=== PATIENT | female | born 1975 | race Caucasian/White ===

== ENCOUNTER 2016-07-28 14:37 | Emergency (ER) | payer OTHER | END 2016-07-28 16:54 | disposition home or self-care (01) | DX: F32.9 Major depressive disorder, single episode, unspecified (principal); R45.851 Suicidal ideations; R51 Headache; S41.112A Laceration without foreign body of left upper arm, initial encounter; X78.8XXA Intentional self-harm by other sharp object, initial encounter; F31.9 Bipolar disorder, unspecified; F43.10 Post-traumatic stress disorder, unspecified; M79.7 Fibromyalgia; M54.9 Dorsalgia, unspecified; G89.29 Other chronic pain; F17.200 Nicotine dependence, unspecified, uncomplicated ==

== ENCOUNTER 2016-08-07 | Outpatient (CLI) | payer OTHER | END 2016-08-07 11:42 | disposition critical access hospital (66) | CPT/HCPCS: A0425; A0429 ==

== ENCOUNTER 2016-08-07 11:59 | Emergency (ER) | payer OTHER ==
[2016-08-07] MEDS ORDERED: oxyCOD/ACETAMIN 5 MG/325 MG TABLET PO STA (18:48)
[2016-08-07] MEDS ORDERED: oxyCOD/ACETAMIN 5 MG/325 MG TABLET PO ONE (18:50)
[2016-08-08] MEDS ORDERED: oxyCOD/ACETAMIN 5 MG/325 MG TABLET PO STA (01:06)
[2016-08-08] MEDS ORDERED: NICOTINE 14 MG PATCH TOP STA (01:07)
[2016-08-08] MEDS ORDERED: oxyCOD/ACETAMIN 5 MG/325 MG TABLET PO ONE (01:08)
[2016-08-08] MEDS ORDERED: NICOTINE 21 MG PATCH TOP ONE (01:08)
[2016-08-08] MEDS ORDERED: NICOTINE 14 MG PATCH TOP ONE (01:09)
[2016-08-08] MEDS ORDERED: HYDROmorphone 1 MG/ML SYRINGE IM STA (01:42)
[2016-08-08] MEDS ORDERED: HYDROmorphone 1 MG/ML SYRINGE ONE (01:42)
== END 2016-08-08 01:55 ==
DX: F32.9 Major depressive disorder, single episode, unspecified (principal); R45.851 Suicidal ideations; F31.9 Bipolar disorder, unspecified; F43.10 Post-traumatic stress disorder, unspecified; S81.811A Laceration without foreign body, right lower leg, initial encounter; X78.9XXA Intentional self-harm by unspecified sharp object, initial encounter
CPT/HCPCS: 36415; 80053; 80306; 80307; 80320; 80329; 81003; 81025; 83690; 84443; 85025; 87070; 87430; 96372; 99284; 99285; A9270; J1170

== ENCOUNTER 2016-08-08 | Outpatient (CLI) | payer OTHER | END 2016-08-08 01:54 | DX: R45.851 Suicidal ideations (principal) | CPT/HCPCS: A0425; A0428 ==

== ENCOUNTER 2016-10-31 13:29 | Outpatient (CLI) | payer OTHER | END 2016-10-31 13:30 | disposition critical access hospital (66) | DX: T43.622A Poisoning by amphetamines, intentional self-harm, initial encounter (principal); T44.992A Poisoning by other drug primarily affecting the autonomic nervous system, intentional self-harm, initial encounter; Y92.013 Bedroom of single-family (private) house as the place of occurrence of the external cause | CPT/HCPCS: A0425; A0427 ==

== ENCOUNTER 2016-10-31 13:48 | Emergency (ER) | payer OTHER ==
[2016-10-31] MEDS ORDERED: MUPIROCIN 2% CREAM 30 GM TUBE TOP STA (17:14)
[2016-10-31] MEDS ORDERED: LORATADINE 10 MG TABLET PO STA (17:14)
[2016-10-31] MEDS ORDERED: LORATADINE 10 MG TABLET ONE (17:33)
[2016-10-31] MEDS ORDERED: FAMOTIDINE 20 MG TABLET PO STA (17:35)
[2016-10-31] MEDS ORDERED: MUPIROCIN 2% OINT 22 GM TUBE TOP ONE (17:35)
[2016-10-31] MEDS ORDERED: FAMOTIDINE 20 MG TABLET ONE (17:38)
[2016-10-31] MEDS ORDERED: LORazepam 0.5 MG TABLET PO STA (21:10)
[2016-10-31] MEDS ORDERED: NICOTINE 21 MG PATCH TOP STA (21:10)
[2016-10-31] MEDS ORDERED: NICOTINE 21 MG PATCH TOP ONE (21:11)
[2016-10-31] MEDS ORDERED: LORazepam 0.5 MG TABLET ONE (21:11)
[2016-10-31] MEDS ORDERED: SIMETHICONE CHEW 80 MG TABLET PO STA (21:35)
[2016-10-31] MEDS ORDERED: KETOROLAC 60 MG/2 ML VIAL IM STA (23:02)
[2016-10-31] MEDS ORDERED: KETOROLAC 60 MG/2 ML VIAL ONE (23:04)
[2016-11-01] MEDS ORDERED: ONDANSETRON 4 MG/2 ML VIAL IVP STA (00:12)
[2016-11-01] MEDS ORDERED: ONDANSETRON 4 MG/2 ML VIAL ONE (00:19)
== END 2016-11-01 01:04 ==
DX: T39.1X2A Poisoning by 4-Aminophenol derivatives, intentional self-harm, initial encounter (principal); T50.5X2A Poisoning by appetite depressants, intentional self-harm, initial encounter; T39.312A Poisoning by propionic acid derivatives, intentional self-harm, initial encounter; T44.992A Poisoning by other drug primarily affecting the autonomic nervous system, intentional self-harm, initial encounter; T43.622A Poisoning by amphetamines, intentional self-harm, initial encounter; Y92.009 Unspecified place in unspecified non-institutional (private) residence as the place of occurrence of the external cause; K21.9 Gastro-esophageal reflux disease without esophagitis; M79.7 Fibromyalgia; F31.9 Bipolar disorder, unspecified; Z79.82 Long term (current) use of aspirin; F17.200 Nicotine dependence, unspecified, uncomplicated
CPT/HCPCS: 36415; 80053; 80306; 80307; 80320; 80329; 81003; 81025; 83690; 84443; 85025; 96372; 96374; 99284; A9270

== ENCOUNTER 2016-11-01 01:08 | Outpatient (CLI) | payer OTHER | END 2016-11-01 01:09 | DX: Z04.9 Encounter for examination and observation for unspecified reason (principal) | CPT/HCPCS: A0425; A0428 ==

== ENCOUNTER 2017-03-23 03:41 | Emergency (ER) | payer OTHER ==
[2017-03-23] MEDS ORDERED: diphenhydrAMINE INJ 50 MG/ML VIAL IVP STA (03:51)
[2017-03-23] MEDS ORDERED: KETOROLAC 60 MG/2 ML VIAL IVP STA (03:51)
[2017-03-23] MEDS ORDERED: SODIUM CHLORIDE 0.9% 1,000 ML IV ONE (03:51)
[2017-03-23] MEDS ORDERED: METOCLOPRAMIDE 10 MG/2 ML VIAL IVP STA (03:51)
[2017-03-23] MEDS ORDERED: KETOROLAC 30 MG/ML VIAL ONE (04:07)
[2017-03-23] MEDS ORDERED: diphenhydrAMINE INJ 50 MG/ML VIAL ONE (04:07)
[2017-03-23] MEDS ORDERED: METOCLOPRAMIDE 10 MG/2 ML VIAL ONE (04:07)
--- NOTE | 2017-03-23 05:08 | ED Physician Documentation ---
PD HPI HEADACHE - Stated complaint Stated Complaint: HEADACHE - Chief complaint Chief Complaint: Neuro - History obtained from History obtained from: Patient, Friend - History of Present Illness Timing - onset: How many days ago (3) Timing - onset during: Rest Timing - duration: Days Timing - details: Gradual onset, Still present Worst headache ever?: Worst headache ever? (no) Location: Front Quality: Aching Associated symptoms: Nausea. No: Fever, Vomiting, Weakness, Numbness, Syncope Improved by: Rest, Dark room Worsened by: Light Contributing factors: No: Anticoagulated Similar symptoms before: Work up / diagnostics, Treatment, Follow up Recently seen: Not recently seen - Additional information Additional information: Patient is a 41 year old female with a history of migraines who is presenting for headache. patient states that it has been going on for the last 4 days. patient has been taking her medications but states that it just wont go away entirely. patient states that it is similar to her previous headaches and denies any focal neurological deficits. Review of Systems Constitutional: denies: Fever, Chills Eyes: reports: Photophobia Ears: denies: Ear pain, Drainage/discharge Nose: reports: Congestion, Sinus pressure / pain Throat: denies: Dental pain / toothache, Sore throat Cardiac: denies: Chest pain / pressure, Palpitations Respiratory: denies: Cough GI: reports: Nausea. denies: Abdominal Pain, Vomiting, Constipation, Diarrhea : denies: Dysuria, Frequency Skin: denies: Rash, Lesions Musculoskeletal: reports: Neck pain. denies: Back pain, Extremity pain Neurologic: reports: Headache. 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, Breast implants HEENT: Tonsil/Adenoidectomy - Present Medications Home Medications: Ambulatory Orders Medication Instructions Recorded Confirmed Aspirin/Acetaminophen/Caffeine 2 each PO DAILY 10/10/13 01/25/16 [Excedrin Extra Strength Caplet] oxyCODONE/ACET 5/325 [Percocet 5 1 each PO ONCE 10/10/13 08/07/16 mg/325 mg] Dextroamphetamine/Amphetamine 20 mg PO DAILY 06/13/14 01/25/16 [Adderall 20 mg Tablet] Escitalopram [Lexapro] 10 mg PO DAILY 06/13/14 01/25/16 Rizatriptan Benzoate [Maxalt] 5 mg PO ONCE PRN #6 tablet 07/28/16 Mupirocin Calcium [Bactroban] 1 applic TP BID #15 g 10/31/16 - Allergies Allergies/Adverse Reactions: Allergies Allergy/AdvReac Type Severity Reaction Status Date / Time No Known Drug Allergies Allergy Verified 03/23/17 03:48 - Social History Does the pt smoke?: Yes Smoking Status: Current every day smoker Does the pt drink ETOH?: No Does the pt have substance abuse?: No - Immunizations Immunizations are current?: Yes - POLST Patient has POLST: No PD ED PE NORMAL - Vitals Vital signs reviewed: Yes - General General: Alert and oriented X 3, No acute distress, Well developed/nourished - HEENT HEENT: Atraumatic, PERRL, Pharynx benign - Neck Neck: Supple, no meningeal sign, No JVD - Cardiac Cardiac: RRR, No murmur - Respiratory Respiratory: No respiratory distress - Abdomen Abdomen: Non distended - Derm Derm: Normal color, Warm and dry, No rash - Extremities Extremities: No deformity, No tenderness to palpate, Normal ROM s pain, No edema - Neuro Neuro: Alert and oriented X 3, No motor deficit, No sensory deficit, Normal speech - Psych Psych: Normal mood, Normal affect Results - Vitals Vitals: Vital Signs - 24 hr 03/23/17 03:44 Temperature 36.7 C Heart Rate 88 Respiratory 18 Rate Blood Pressure 135/79 H O2 Saturation 98 Oxygen O2 Source Room air PD MEDICAL DECISION MAKING - ED course Complexity details: reviewed old records, re-evaluated patient, considered differential, d/w patient, d/w family ED course: Patient was seen and examined at bedside. IV access was gained and labs were drawn. patient had no fever, no neurological deficits and no meningeal signs. Patient was treated with IV fluids, toradol, reglan and bendaryl. Upon re- evaluation patient stated that her headache was gone and just wanted to go home and sleep. patient required no further work up and was stable for discharge with outpatient follow up. Departure - Departure Disposition: 01 Home, Self Care Clinical Impression: Headache Condition: Good Instructions: ED Headache Migraine Follow-Up: Aristides Cervantes MD [Primary Care Provider] - Within 3 Days Comments: Please try to stay well hydrated and get plenty of rest. Please try to avoid any of your migraine triggers if possible. You should follow up with your pmd for further evaluation and care if your headaches become more frequent or have a longer duration. You may return to the emergency department at any time for new, worsening or uncontrollable symptoms.
[2017-03-23 05:26] VITALS: BP 128/67
== END 2017-03-23 05:26 | disposition home or self-care (01) ==
LOC: ED 03:41
DX: R51 Headache (principal); F17.200 Nicotine dependence, unspecified, uncomplicated
CPT/HCPCS: 96374; 96375; 99283

== ENCOUNTER 2018-06-01 14:31 | Outpatient (CLI) | payer OTHER | END 2018-06-01 14:32 | disposition home or self-care (01) | LOC: SC 14:31 | PROVIDERS: ATTEND Internal Medicine Pulmonary Disease | DX: G47.33 Obstructive sleep apnea (adult) (pediatric) (principal) | CPT/HCPCS: 99203; 99212 ==

== ENCOUNTER 2018-07-29 10:38 | Outpatient (CLI) | payer OTHER | END 2018-07-29 10:39 | disposition short-term general hospital (02) | LOC: EMS 10:38 | PROVIDERS: ATTEND Surgery | DX: R07.89 Other chest pain (principal) | CPT/HCPCS: A0425; A0427 ==

== ENCOUNTER 2018-09-09 19:35 | Outpatient (CLI) | payer OTHER | END 2018-09-09 19:36 | disposition home or self-care (01) | LOC: SC 19:35 | PROVIDERS: ATTEND Internal Medicine Pulmonary Disease | DX: G47.33 Obstructive sleep apnea (adult) (pediatric) (principal); G47.61 Periodic limb movement disorder | CPT/HCPCS: 95810 ==

== ENCOUNTER 2018-10-05 10:11 | Outpatient (CLI) | payer OTHER | END 2018-10-05 10:12 | disposition home or self-care (01) | LOC: SC 10:11 | PROVIDERS: ATTEND Nurse Practitioner Family | DX: G47.33 Obstructive sleep apnea (adult) (pediatric) (principal); G47.61 Periodic limb movement disorder | CPT/HCPCS: 99212; 99214 ==

== ENCOUNTER 2019-04-09 06:59 | Day surgery (SDC) | payer OTHER ==
[~2019-04-09 06:59] MED LIST: BUPIVACAINE 0.25% PF 30 ML VIAL ONE; CEFAZOLIN SODIUM IN 0.9 % NACL 2 GM/100 ML BAG IV ONE
[2019-04-09] MEDS ORDERED: fentaNYL 100 MCG/2 ML VIAL IVP ONE (07:00)
[2019-04-09] MEDS ORDERED: PROPOFOL 200 MG/20 ML VIAL IVP ONE (07:00)
[2019-04-09] MEDS ORDERED: ePHEDrine 50 MG/ML VIAL IVP ONE (07:00)
[2019-04-09] MEDS ORDERED: DEXAMETHASONE 4 MG/ML VIAL IVP ONE (07:00)
[2019-04-09] MEDS ORDERED: MIDAZOLAM 2 MG/2 ML VIAL IVP ONE (07:00)
[2019-04-09] MEDS ORDERED: BUPIVACAINE 0.25% PF 30 ML VIAL ONE (07:01)
[2019-04-09] MEDS ORDERED: LACTATED RINGERS 1,000 ML IV ONE (07:04)
[2019-04-09 07:21] LABS: HCG UR QUAL NEGATIVE
--- NOTE | 2019-04-09 07:39 | ANESTHESIA ---
Pre-Anesthesia VS, & Labs - Diagnosis Right carpal tunnel syndrome - Procedure right carpal tunnel release Vital Signs: Temp Pulse Resp BP Pulse Ox 36 C L 71 18 120/100 H 99 04/09/19 07:20 04/09/19 07:20 04/09/19 07:20 04/09/19 07:20 04/09/19 07:20 Height 5 ft 5 in Weight (kg) 105 kg Body Mass Index 34.9 - NPO >8 hours - Is Patient ?: No Home Medications and Allergies Home Medications: Ambulatory Orders Amitriptyline [Elavil] 20 mg PO DAILY 04/08/19 DULoxetine [Cymbalta] 40 mg PO DAILY 04/08/19 Hydroxyzine Pamoate [Vistaril] 50 mg PO DAILY 04/08/19 Propranolol [Inderal] 40 mg PO DAILY 04/08/19 Zolpidem [Ambien] 5 mg PO DAILY 04/08/19 lamoTRIgine [LaMICtal] 100 mg PO DAILY 04/08/19 Aspirin/Acetaminophen/Caffeine [Excedrin Extra Strength Caplet] 2 each PO DAILY 10/10/13 oxyCODONE/ACET 5/325 [Percocet 5 mg/325 mg] 1 each PO ONCE 10/10/13 Dextroamphetamine/Amphetamine [Adderall 20 mg Tablet] 20 mg PO DAILY 06/13/14 Amitriptyline [Elavil] 20 mg PO DAILY 04/08/19 DULoxetine [Cymbalta] 40 mg PO DAILY 04/08/19 Hydroxyzine Pamoate [Vistaril] 50 mg PO DAILY 04/08/19 Propranolol [Inderal] 40 mg PO DAILY 04/08/19 Zolpidem [Ambien] 5 mg PO DAILY 04/08/19 lamoTRIgine [LaMICtal] 100 mg PO DAILY 04/08/19 Allergies/Adverse Reactions: Allergies Allergy/AdvReac Type Severity Reaction Status Date / Time No Known Drug Allergies Allergy Verified 03/23/17 03:48 Anes History & Medical History - Anesthetic History Anesthesia Complications: reports: No previous complications - Medical History Cardiovascular: reports: Arrhythmia (Had an episode of SVT) Pulmonary: reports: Sleep apnea (does not use cpap, reports sleep anea is mild) Gastrointestinal: reports: GERD (controlled with medication) Urinary: reports: Kidney stones (right side) Neuro: reports: None Musculoskeletal: reports: Osteoarthritis, Fibromyalgia, Chronic back pain, Other (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, removed and grafted.) Endocrine/Autoimmune: reports: None Blood Disorders: reports: None Skin: reports: None Smoking Status: Current every day smoker (uses chewing tobacco.) Psychosocial: reports: Depression (history of bipolar), Anxiety - Surgical History Eyes Ears Nose Throat (EENT): Tonsil/Adenoidectomy Gynecologic: section, Breast implants Orthopedic: Spine surgery Exam General: Alert, Oriented x3, Cooperative, No acute distress Dental: WNL Mouth Openin Fingerbreadth Neck Mobility: Normal Mallampati classification: II Thyromental Distance: greater than 6 cm Respiratory: Lungs clear, Normal breath sounds, No respiratory distress, No accessory muscle use Cardiovascular: Regular rate, Normal S1, Normal S2, No murmurs Mental/Cognitive Status: Alert/Oriented X3, Normal for patient Plan Anesthesia Type: General Consent for Procedure(s) Verified and Reviewed: Yes Code Status: Attempt Resuscitation ASA classification: 2-Mild systemic disease Is this case an emergency?: No
[2019-04-09] MEDS ORDERED: BUPIVACAINE 0.25% PF 30 ML VIAL SUBQ ONE ×2 (08:22)
[2019-04-09] MEDS ORDERED: oxyCODONE 5 MG TABLET PO PRN (09:03)
[2019-04-09] MEDS ORDERED: ONDANSETRON 4 MG/2 ML VIAL IVP PRN (09:03)
--- NOTE | 2019-04-09 09:15 | OPERATIVE REPORT ---
Operative Report - Other Other Information/Narrative: Date of Procedure: 09 April 2019 Planned Procedure: Right open carpal tunnel release Pre-op diagnosis: Right carpal tunnel syndrome Procedure performed: Right open carpal tunnel release Post-op diagnosis: Right carpal tunnel syndrome Primary Surgeon: TAO WASHINGTON Secondary Surgeon: Keya Anesthesia: LMA EBL: 5 ml Tourniquet: 16 minutes, right upper arm at 250mmHg. Specimen(s) Information: None Complication(s): None Condition: Stable to recovery Indications for Surgery: The patient is a 43-year-old right hand dominant female with a at least 5-year history of right hand numbness in the median nerve distribution. Clinical exam and EMG consistent with right carpal tunnel syndrome. She had excellent response to a right carpal tunnel steroid injection, but with recurrence of symptoms over a period of approximately 4 months. She had failed non-operartive management and desired surgical intervention. Risks of surgery were discussed to include bleeding, infection, postoperative wrist stiffness, damage to nerves (including the median nerve and recurrent motor branch to the thenar musculature), vessels, tendons, ligaments, anesthesia complications to include medication side effects and allergic reactions, blood clot, stroke, heart attack and even . After a discussion, they wished to proceed. Findings: Thickened transverse carpal ligament Descriptions of Procedure: The patient was met in the Preoperative Holding Area, at which time preoperative paperwork was confirmed. The right volar wrist was signed. The patient was then brought to Main Operating Room, placed supine on the Operating Room table, at which time pre procedure timeout was conducted to confirm correct patient, correct extremity and correct procedure and also to confirm presence and sterility of all required equipment and to confirm that antibiotics were being administered in the form of 2g of intravenous Ancef. After this was confirmed, general anesthesia was induced. The operative extremity was then prepped and draped over a hand table in the normal sterile fashion after a well-padded tourniquet was placed on the proximal arm. A final timeout was conducted to confirm the correct patient, correct extremity and correct procedure and to confirm that antibiotics had been administered within 30 minutes of incision time. The operative extremity was then exsanguinated with an Esmarch bandage and tourniquet inflated to 250mmHg. Coppola's cardinal line, and the ulnar border of the flexed fourth digit, and the hook of hamate were marked on the hand. A 3cm longitudinal incision was made with a #15 blade through skin and subcutaneous tissue. Dissection was further carried out with tenotomy scissors. Small crossing vessels were coagulated with bipolar electrocautery, the palmar fascia was exposed, and split longitudinally in line with its fibers, the fat was retracted ulnarly, and the transverse carpal ligament was exposed. A 15 blade was used to make a small incision in the transverse carpal ligament, and then a small mosquito clamp was introduced directly deep to the ligament above the contents of the carpal tunnel to gently free off any adhesions between the deep surface of the transverse carpal ligament and the median nerve. Dissection was carried distally under direct visualization, releasing the transverse carpal ligament until the palmar fat was was visualized. Digital examination was performed to ensure that there were no remaining tight bands constricting the nerve. Attention was then turned proximally, and a Ponderosa elevator was passed deep to the transverse carpal ligament and antebrachial fascia, and these were i ncised in line with the nerve approximately 2 cm proximal to the distal wrist crease. This was performed under direct visualization. Again digital examination of the proximal extent of the release was performed to ensure no tight bands or constrictive points remained over the nerve. Satisfied that the carpal tunnel had been completely released, the wound was irrigated, and the tourniquet was let down. Pressure was held on the incision for approximately 5 minutes, and bleeding points were then cauterized with bipolar electrocautery. After ensuring good hemostasis, the wound was again irrigated and then closed using 4-0 nylon in interrupted horizontal mattress fashion. 13 mL of quarter percent Marcaine plain, was injected into the gertrude-incisional soft tissues. The wound was then dressed with Xeroform, 4 x 4 gauze, webril and a compressive Jurgen wrap. The patient was then awakened from general anesthesia without complication, brought to the Post Anesthesia Care for further recovery. Postoperative Plan: 1. The patient will be discharged from the Same Day Surgery Unit when discharge criteria are met. 2. The patient will remain in a soft dressing until follow-up. They can begin ge ntle wrist range of motion on postoperative day #1 or #2 as pain allows. 3. The patient will follow up in 10-14 days for a wound check and suture removal. 4. Expect return to full activity/duty in 6-8 weeks, they may have wrist stiffness postoperatively.
[2019-04-09] MEDS: HYDROmorphone 1 MG/ML CARPUJECT ONE ×2 (09:22→09:27)
[2019-04-09] MEDS ORDERED: oxyCODONE 5 MG TABLET ONE (10:08)
[2019-04-09 10:39] VITALS: BP 133/77
== END 2019-04-09 07:00 | disposition home or self-care (01) ==
LOC: SDS 06:59
PROVIDERS: ATTEND Orthopaedic Surgery
PROC: 01N50ZZ Release Median Nerve, Open Approach (ICD-10-PCS; principal; 2019-04-09 08:00)
DX: G56.01 Carpal tunnel syndrome, right upper limb (principal); M79.7 Fibromyalgia; F31.9 Bipolar disorder, unspecified; F41.9 Anxiety disorder, unspecified; F60.3 Borderline personality disorder; G47.30 Sleep apnea, unspecified; E66.01 Morbid (severe) obesity due to excess calories; F17.210 Nicotine dependence, cigarettes, uncomplicated; F17.220 Nicotine dependence, chewing tobacco, uncomplicated; Z79.899 Other long term (current) drug therapy; Z79.891 Long term (current) use of opiate analgesic; Z68.34 Body mass index [BMI] 34.0-34.9, adult; Z86.79 Personal history of other diseases of the circulatory system
CPT/HCPCS: 64721; 81025; A9270; J0690; J1170; J7120

== ENCOUNTER 2019-07-08 17:29 | Outpatient (CLI) | payer OTHER ==
[2019-07-08] MEDS ORDERED: GADOBUTROL 10 MMOL/10 ML VIAL ONE (18:09)
[2019-07-08] MEDS ORDERED: GADOBUTROL 10 MMOL/10 ML VIAL IVP ONE (19:36)
--- NOTE | 2019-07-09 14:55 | MRI Report ---
Reason: PAIN IN LT HAND Procedure Date: 07/08/2019 Accession Number: [id number] / [id number] Procedure: MRI - Hand LT W/WO CPT Code: Final Report FULL RESULT: EXAM: LEFT HAND MRI WITHOUT AND WITH CONTRAST EXAM DATE: 07/08/2019 06:13 PM. CLINICAL HISTORY: Distal index finger pain. Please evaluate for glomus tumor. COMPARISON: None. TECHNIQUE: Multiplanar, multisequence T1-weighted and fluid-sensitive sequences of the hand before and after administration of intravenous contrast. IV contrast: 10 cc Gadavist. Other: None. FINDINGS: A skin marker was placed at the point of tenderness. The marker overlies the dorsal aspect of the index finger at a level slightly distal to the proximal nail fold to the ulnar side of midline. Immediately subjacent to the marker is a rounded T2 hyperintense/ brightly enhancing structure deep to the nail which measures 3 mm in diameter and is consistent with a glomus tumor. This finding is best seen on series 1801 image 6 and series 1701 images 21-22. There is subtle scalloping of the underlying dorsal cortex of the distal phalanx reflecting minimal bony remodeling related to the glomus tumor. Soft tissues elsewhere are normal. No further abnormal enhancement elsewhere. Visible flexor and extensor tendons are normal. Osseous structures are normal. 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 RADIA
== END 2019-07-08 17:30 | disposition home or self-care (01) ==
LOC: DI 17:29
PROVIDERS: ATTEND Orthopaedic Surgery
DX: D18.01 Hemangioma of skin and subcutaneous tissue (principal); M79.645 Pain in left finger(s)
CPT/HCPCS: 73220; A9585

== ENCOUNTER 2019-12-30 04:49 | Emergency (ER) | payer OTHER ==
--- NOTE | 2019-12-30 04:57 | ED Physician Documentation ---
PD HPI OPHTHO - Stated complaint Stated Complaint: EYE PX - Chief complaint Chief Complaint: Heent - History obtained from History obtained from: Patient - History of Present Illness Timing - onset: How many hours ago (2), Today Timing - duration: Hours (2) Timing - details: Abrupt onset (felt like a hair in her right eye. She tried to rinse it out. Saw a hair there. Still feeling like it is there, with eye irritation up under upper lid.), Still present Location: Right Quality / character: Sharp (feeling like something in eye, and she thought she saw a hair under upper lid. 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 No: Wears contacts Similar symptoms before: Has not had sx before Review of Systems Eyes: denies: Loss of vision, Decreased vision, Photophobia, Irritation Nose: denies: Rhinorrhea / runny nose, Congestion Throat: denies: Sore throat Respiratory: denies: Dyspnea, Cough GI: denies: Nausea, Vomiting PD PAST MEDICAL HISTORY - Past Medical History Cardiovascular: Arrhythmia (Had an episode of SVT) Respiratory: Sleep apnea (does not use cpap, reports sleep anea is mild) Neuro: None Endocrine/Autoimmune: None GI: GERD (controlled with medication) : Kidney stones (right side) HEENT: None Psych: Depression, Anxiety, Bipolar disorder, Panic attacks Musculoskeletal: Osteoarthritis, Fibromyalgia, Chronic back pain, Other (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, removed and grafted.) Derm: None - Past Surgical History Past Surgical History: Yes 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, Breast implants HEENT: Tonsil/Adenoidectomy - Present Medications Home Medications: Ambulatory Orders Medication Instructions Recorded Confirmed Aspirin/Acetaminophen/Caffeine 2 each PO DAILY 10/10/13 04/08/19 [Excedrin Extra Strength Caplet] oxyCODONE/ACET 5/325 [Percocet 5 1 each PO ONCE 10/10/13 08/07/16 mg/325 mg] Dextroamphetamine/Amphetamine 20 mg PO DAILY 06/13/14 04/08/19 [Adderall 20 mg Tablet] Rizatriptan Benzoate [Maxalt] 5 mg PO ONCE PRN #6 tablet 07/28/16 Amitriptyline [Elavil] 20 mg PO DAILY 04/08/19 04/08/19 DULoxetine [Cymbalta] 40 mg PO DAILY 04/08/19 04/08/19 Propranolol [Inderal] 40 mg PO DAILY 04/08/19 04/09/19 Zolpidem [Ambien] 5 mg PO DAILY 04/08/19 04/08/19 hydrOXYzine pamoate [Vistaril] 50 mg PO DAILY 04/08/19 04/08/19 lamoTRIgine [LaMICtal] 100 mg PO DAILY 04/08/19 04/08/19 - Allergies Allergies/Adverse Reactions: Allergies Allergy/AdvReac Type Severity Reaction Status Date / Time No Known Drug Allergies Allergy Verified 12/30/19 04:58 - Social History Does the pt smoke?: Yes Smoking Status: Current every day smoker (uses chewing tobacco.) Does the pt drink ETOH?: No Does the pt have substance abuse?: No - Immunizations Immunizations are current?: Yes - POLST Patient has POLST: No PD ED PE NORMAL - Vitals Vital signs reviewed: Yes - General General: Alert and oriented X 3, Well developed/nourished, Other (She seems uncomfortable and is attempting to try to show a foreign body under the eyelid by lifting her eyelid. I assured her I could get a better view to trying to do it myself. Evaluation of right did not show any obvious foreign body. Eversion of the lid did not show anything underneath. Pupils equal round reactive to light, extra motions are intact. The anterior chamber appears normal. Fluorescein staining showed a linear area of uptake at the 11 o'clock position on the sclera. No foreign body noted in this area.) - HEENT HEENT: PERRL, EOMI Results - Vitals Vitals: Vital Signs - 24 hr 12/30/19 12/30/19 04:50 05:32 Temperature 97.8 C H Heart Rate 88 84 Respiratory 16 20 Rate Blood Pressure 120/68 122/68 O2 Saturation 97 98 Oxygen O2 Source Room air Departure - Departure Disposition: 01 Home, Self Care Clinical Impression: Corneal abrasion Qualifiers: Encounter type: initial encounter Laterality: right Qualified Code(s): S05.01XA - Injury of conjunctiva and corneal abrasion without foreign body, right eye, initial encounter Condition: Stable Record reviewed to determine appropriate education?: Yes Instructions: ED Eye Injury Corneal Abrasion Follow-Up: DE LA GARZA,LORIE M, DO [Primary Care Provider] - Comments: I do not see any hair or foreign body on the eye at this time. The staining of the eye does show a corneal abrasion in the central upper part of the eye surface. I presume that you had gotten the hair out and are now feeling the abrasion. This should improve over the next several hours to half a day or so. You can try some of the eye ointment to help coat the area and will often provide some comfort. Tylenol or ibuprofen if needed for discomfort. Recheck with an clinical pharmacy specialist if not improving by later today. Discharge Date/Time: 12/30/19 05:32
[2019-12-30] MEDS ORDERED: PROPARACAINE 0.5% OPHTH DROPS 15 ML RIGHTEYE STA (04:58)
[2019-12-30] MEDS ORDERED: ERYTHROMYCIN OPHTH OINT 1 GM TUBE RIGHTEYE STA (05:22)
[2019-12-30 05:33] VITALS: BP 122/68
== END 2019-12-30 05:32 | disposition home or self-care (01) ==
LOC: ED 04:49
DX: S05.01XA Injury of conjunctiva and corneal abrasion without foreign body, right eye, initial encounter (principal); X58.XXXA Exposure to other specified factors, initial encounter; F17.220 Nicotine dependence, chewing tobacco, uncomplicated
CPT/HCPCS: 99282; 99283; J3490

== ENCOUNTER 2020-08-29 12:46 | Outpatient (CLI) | payer OTHER ==
[2020-08-29] MEDS ORDERED: GADOBUTROL 10 MMOL/10 ML VIAL ONE (13:17)
[2020-08-29] MEDS ORDERED: GADOBUTROL 10 MMOL/10 ML VIAL IVP ONE (14:39)
--- NOTE | 2020-08-29 16:11 | MRI Report ---
PROCEDURE: Lumbar Spine W/WO INDICATIONS: RADICULOPATHY, MASS OR LUMP CONTRAST: IV CONTRAST: Gadavist ml: 10 TECHNIQUE: Noncontrast sagittal T1 spin echo and T2 fast spin echo, sagittal STIR, axial T1 and T2 fast spin ech o through the lumbar spine. In cases with scoliosis, additional coronal T2 fast spin echo may be per formed. After the administration of contrast, sagittal and axial T1 spin echo with fat saturation th rough the lumbar spine. COMPARISON: Lumbar spine MRI dated 02/15/2020 FINDINGS: Image quality: Excellent. Alignment and curvature: No plain films are available for comparison. There appears to be a transiti onal element at L5. This should be confirmed with plain film correlation prior to any lumbar spinal i ntervention. There is loss of normal lumbar lordosis. There is mild grade 1 retrolisthesis of L3 on L 4. Marrow: Marrow is of normal overall signal. No acute vertebral body compression fractures. No susp icious marrow enhancement. Minimal reactive signal within the endplates adjacent to the L2-L3, L3-L4 , L4-L5 intervertebral discs. Spinal cord: Conus medullaris terminates at the L1-L2 disc space level. Visualized spinal cord demo nstrates normal signal, without suspicious enhancement. Paraspinous soft tissues: No paravertebral masses or abnormal enhancement. T12-L1: Normal in appearance. L1-L2: Mild facet and ligament flavum hypertrophy. Mild epidural lipomatosis. Mild canal stenosis. No foraminal stenosis. No change. L2-L3: Mild disc desiccation and diffuse disc bulge. Mild facet and ligament flavum hypertrophy. M ild canal stenosis. Mild bilateral foraminal stenosis. No change. L3-L4: Mild disc desiccation and diffuse disc bulge. Mild facet and ligament flavum hypertrophy. Mi ld epidural lipomatosis. Mild canal stenosis. Mild bilateral foraminal stenosis. No change. L4-L5: Mild disc height loss and desiccation. Mild diffuse disc bulge. Moderate facet and ligament flavum hypertrophy. Mild epidural lipomatosis. Moderate canal stenosis. Moderate left and moderate to severe right foraminal stenosis. Mild compression of the right L4 nerve root. No change. L5-S1: Rudimentary appearing intervertebral disc. Mild bilateral facet hypertrophy. Mild canal sten osis. Mild bilateral foraminal stenosis. At the lower L5 level, there is an irregular low T1/T2 signa l intensity focus within the right posterior epidural space, measuring roughly 9 mm oblique transvers e, which demonstrates avid postcontrast enhancement, and is not significantly changed compared to 01/19. IMPRESSION: 1. Multilevel degenerative disc and facet disease, in addition to epidural lipomatosis and ligamentum flavum hypertrophy. 2. Mild multilevel canal stenoses. 3. Multilevel foraminal stenoses, worst at L4-L5 where there is associated intraforaminal nerve root compression. 4. No change in right posterior epidural focus at the lower L5 level, which demonstrates postcontrast enhancement. Findings most consistent with an enhancing inflammatory component of facet osteoarthrit is/synovial cyst. Follow-up lumbar spine MRI with and without intravenous contrast in 6 months is rec ommended to confirm stability and to exclude underlying neoplasm. 5. Correlation with plain films for numbering purposes is recommended prior to any lumbar spinal inte rvention. Reviewed by: Froilan Funez MD on 08/29/2020 4:09 PM PST Approved by: Froilan Funez MD on 08/29/2020 4:09 PM PST Station ID: [id number]
--- NOTE | 2020-08-29 19:04 | MRI Report ---
PROCEDURE: Pelvis W/WO INDICATIONS: RADICULOPATHY, MASS OR LUMP TECHNIQUE: Noncontrast coronal and axial T1 spin echo and STIR through the pelvis. After IV contrast infusion, axial, coronal and sagittal T1 through pelvis was also obtained. COMPARISON: None. FINDINGS: Image quality: Excellent. Bones: Bone marrow of the pelvic ring, sacrum, and proximal femurs show normal signal throughout. N o intraosseous lesions or fractures identified. No evidence of avascular necrosis of femoral heads. N o suspicious intraosseous lesion or abnormal intraosseous enhancement.. Tendons: The gluteus medius and minimus tendons appear intact, without associated muscle atrophy. T he iliopsoas tendons appear intact, without adjacent bursal fluid collections. The origins of the colon mstring tendons are intact bilaterally. Soft tissues: No enhancing soft tissue mass or fluid collection is seen. Surface skin markers are se en in medial aspect of bilateral upper thigh just inferior to bilateral gluteal region and show lizandro l adipose tissue. Visualized muscles demonstrate normal bulk and internal signal. No joint effusions . No free pelvic fluid. Bladder wall thickness is normal. Genitourinary structures and bowel loops appear normal where visualized. IMPRESSION: 1. No discrete soft tissue mass or fluid collection are seen in pelvis. Normal adipose tissue is note d at patient's reported area of palpable lump, an unencapsulated lipoma cannot be entirely excluded. No enhancing soft tissue mass is seen. No abnormal intramuscular enhancement. 2. No marrow signal abnormality. No fracture or dislocation. No suspicious intraosseous lesion or abn ormal intraosseous enhancement. 3. No pelvic free fluid. No gross abnormality is seen in uterus, bladder and visualized bowel loops. Reviewed by: Anson Santillan MD on 08/29/2020 7:03 PM PST Approved by: Anson Santillan MD on 08/29/2020 7:03 PM PST Station ID: [id number]
== END 2020-08-29 12:47 | disposition home or self-care (01) ==
LOC: DI 12:46
PROVIDERS: ATTEND Family Medicine
DX: R22.2 Localized swelling, mass and lump, trunk (principal); M51.17 Intervertebral disc disorders with radiculopathy, lumbosacral region; M48.07 Spinal stenosis, lumbosacral region
CPT/HCPCS: 72158; 72197; A9585

== ENCOUNTER 2021-01-23 18:39 | Outpatient (CLI) | payer OTHER | END 2021-01-23 18:40 | disposition critical access hospital (66) | LOC: EMS 18:39 | DX: R51.9 Headache, unspecified (principal); R11.2 Nausea with vomiting, unspecified; H53.149 Visual discomfort, unspecified; R42 Dizziness and giddiness | CPT/HCPCS: A0425; A0427 ==

== ENCOUNTER 2021-01-23 18:59 | Emergency (ER) | payer OTHER ==
[2021-01-23] MEDS ORDERED: KETOROLAC 30 MG/ML VIAL IVP STA (19:10)
[2021-01-23] MEDS ORDERED: DROPERIDOL 5 MG/2 ML VIAL IVP STA (19:10)
[2021-01-23] MEDS ORDERED: SODIUM CHLORIDE 0.9% 1,000 ML IV STA (19:10)
[2021-01-23] MEDS ORDERED: diphenhydrAMINE INJ 50 MG/ML VIAL IVP STA (19:11)
--- NOTE | 2021-01-23 19:14 | ED Physician Documentation ---
History of Present Illness - Stated complaint Stated Complaint: HEADACHE/MIGRAINE - Chief complaint Chief Complaint: Heent - History obtained from History obtained from: Patient, Family, EMS - History of Present Illness Timing: How many hours ago (5) Pain level max: 10 Pain level now: 10 - Additonal information Additional information: 45 year old female with a history of chronic headaches presents with a gradually worsening headache over the past 5 hours. mainly behind the left eye. Attempted to take her home meds, but began to vomit and could not keep the medications down. Worse with light and sound. Nothing makes it better. no trauma. Review of Systems Ten Systems: 10 systems reviewed and negative Constitutional: denies: Fever, Chills Eyes: reports: Photophobia Ears: denies: Ear pain Nose: denies: Rhinorrhea / runny nose Cardiac: denies: Chest pain / pressure Respiratory: denies: Cough GI: reports: Nausea, Vomiting. denies: Abdominal Pain, Diarrhea Skin: denies: Rash Musculoskeletal: denies: Neck pain, Back pain Neurologic: reports: Headache. 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, removed and grafted.) Derm: None - Past Surgical History Past Surgical History: Yes Ortho: 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, Breast implants HEENT: Tonsil/Adenoidectomy - Present Medications Home Medications: Ambulatory Orders Medication Instructions Recorded Confirmed oxyCODONE/ACET 5/325 [Percocet 5 1 each PO ONCE 10/10/13 01/23/21 mg/325 mg] Dextroamphetamine/Amphetamine 20 mg PO DAILY 06/13/14 01/23/21 [Adderall 20 mg Tablet] Rizatriptan Benzoate [Maxalt] 5 mg PO ONCE PRN #6 tablet 07/28/16 01/23/21 DULoxetine [Cymbalta] 40 mg PO DAILY 04/08/19 01/23/21 Propranolol [Inderal] 40 mg PO DAILY 04/08/19 01/23/21 lamoTRIgine [LaMICtal] 100 mg PO DAILY 04/08/19 01/23/21 - Allergies Allergies/Adverse Reactions: Allergies Allergy/AdvReac Type Severity Reaction Status Date / Time No Known Drug Allergies Allergy Verified 01/23/21 19:11 - Social History Does the pt smoke?: Yes Smoking Status: Current every day smoker (uses chewing tobacco.) Does the pt drink ETOH?: No Does the pt have substance abuse?: No - Immunizations Immunizations are current?: Yes - POLST Patient has POLST: No PD ED PE NORMAL - Vitals Vital signs reviewed: Yes - General General: Alert and oriented X 3, Other (appears uncomfortable, eyes closed) - HEENT HEENT: Atraumatic, PERRL, Moist mucous membranes, Pharynx benign - Neck Neck: Supple, no meningeal sign, No bony TTP - Cardiac Cardiac: RRR, No murmur, Strong equal pulses - Respiratory Respiratory: No respiratory distress, Clear bilaterally - Abdomen Abdomen: Soft, Non tender, Non distended - Back Back: No spinal TTP - Derm Derm: Warm and dry - Extremities Extremities: No edema, No calf tenderness / cord - Neuro Neuro: Alert and oriented X 3, electrician 2-12 intact, No motor deficit, No sensory deficit, Normal speech - Psych Psych: Normal mood, Normal affect Results - Vitals Vitals: Vital Signs - 24 hr 01/23/21 01/23/21 01/23/21 19:33 20:31 20:32 Heart Rate 73 66 Respiratory 24 17 Rate Blood Pressure 180/102 H O2 Saturation 98 98 Oxygen O2 Source Room air PD MEDICAL DECISION MAKING - ED course Complexity details: reviewed results, re-evaluated patient, considered differential, d/w patient ED course: Patient given droperidol, Toradol, Benadryl and IVF. Headache resolved. Feels much better. No evidence of subarachnoid hemorrhage, tumor, mass. Normal neurological exam. Patient counseled regarding signs and symptoms for which I believe and urgent re-evaluation would be necessary. Patient with good understanding of and agreement to plan and is comfortable going home at this time This document was made in part using voice recognition software. While efforts are made to proofread this document, sound alike and grammatical errors may occur. Departure - Departure Disposition: 01 Home, Self Care Clinical Impression: Migraine Qualifiers: Migraine type: unspecified Status migrainosus presence: without status migrainosus Intractability: not intractable Qualified Code(s): G43.909 - Migraine, unspecified, not intractable, without status migrainosus Condition: Good Instructions: ED Cephalgia Unspecified Follow-Up: LORIE DE LA GARZA, [Primary Care Provider] - Within 1 week Comments: Go home and rest tonight. Return if you worsen. Follow-up with your doctor for further care. Discharge Date/Time: 01/23/21 20:54
[2021-01-23 20:33] VITALS: BP 180/102
== END 2021-01-23 20:54 | disposition home or self-care (01) ==
LOC: EDUNIT# → SUPCPDRO 18:59 → ED 18:59
DX: G43.909 Migraine, unspecified, not intractable, without status migrainosus (principal); F17.220 Nicotine dependence, chewing tobacco, uncomplicated
CPT/HCPCS: 96361; 96374; 96375; 99283; 99284; J1200

== ENCOUNTER 2021-10-03 15:38 | Outpatient (CLI) | payer OTHER ==
[2021-10-03 16:25] VITALS: BP 126/78
--- NOTE | 2021-10-03 16:25 | SLEEP CARE CONSULTATION ---
Information from patient questionnaire entered by Db Mosher MA. I have reviewed and concur with the information entered by Db Mosher MA. This document represents the service I personally performed and the decisions made by Armin levin Caren J, ARNP. History of Present Illness Service Date and Time: 10/03/2021 1538 Previous diagnosis: Mild, Obstructive Sleep Apnea-Hypopnea Syndrome AHI: 7.6 Reason for follow up: annual (LAST SEEN 09/2018) Equipment type: CPAP Equipment obtained from: [employer] (not getting supplies for a long time) Mask style: Full face (Quattro FX) Backup mask available: No Year and Where: [facility] 2018 Type of Sleep Study: Polysomnography HPI additional information: HIEN CASTANEDA was diagnosed to have mild, AHI 7.6, obstructive sleep apnea- hypopnea syndrome and returned today with spouse for CPAP therapy annual follow- up. CPAP Compliance Data - Data Reviewed with Patient Average duration of nightly device use: 2 hours 11 mins Compliance rate %: 1 (180 days) Current pressure setting (cmH2O): 5-10 Average residual AHI: 1.7 Central apnea: 0.0 Obstructive apnea: 1.4 Subjective Missed days of use due to: reports: mask issues Patient concerns: reports: mask discomfort, air blowing in eyes, mask leak noise. denies: aerophagia, condensation in mask/hose, nasal congestion, dry mouth, nose, throat, epistaxis Observed to snore while using device: No Current pressure setting perceived as: comfortable On therapy, patient: reports: other (not using enough to know). denies: drowsiness while driving Initial [place] Sleepiness Scale score: 7 (09/2021) Allergies and Home Medications Home medication list reviewed: Yes Allergy and home medication list: Allergies No Known Drug Allergies Allergy (Verified 01/23/21 19:11) Medications: Percocet 7.5 mg for pain Levothyroxine sodium Cymbalta 60 mg Lamictal 25 mg Phentermine 37.5 mg Motrin 800 mg Cyclobenzaprine, 10 mg Ambien 5 mg, prn Review of Systems Review of systems same as previous: No (Kidney stones/surgery; Lipoma on shoulders; R shoulder and back surgery) Physical Exam Vital signs obtained and entered by: L. MELVA, CHARACTER ACTOR AAMA Blood Pressure: 126/78 (RIGHT, PULES 107, RESP 18,) Cuff size: wrist Heart Rate: 110 O2 Saturation: 97 (N95) Height: 5 ft 5 in Weight: 250 lb (W/O CLOTHES) Weight change since last visit: 19 lb gain Body Mass Index: 41.5 BMI Classification: Morbidly Obese Impression and Plan 1. Obstructive Sleep Apnea-Hypopnea Syndrome, mild, as previously diagnosed and as suggested by a history of loud and irregular snoring, observed cessation of breath while asleep, unrefreshed sleep and excessive daytime sleepiness. Patient was last seen almost 3 years ago. She was looking into oral appliance for her sleep apnea. She was unable to get this and has continued to try her CPAP sporadically. She has difficulty maintaining a good seal on her full face Quat tro FX mask. She is a side sleeper. She tried again in July but has not been using her CPAP in the last 2 months. Patient has also gained about 20 pounds since her last visit. I gave patient a Dream Wisp nasal mask for her to try to see if this fits better and maintains a better seal. I also think we need to proceed to polysomnography to confirm the diagnosis and to assess severity. I informed the patient of what the sleep studies involve and after some discussion, obtained agreement to proceed. The pathophysiology of obstructive sleep apnea-hypopnea syndrome was discussed with the patient and health risks of cardiovascular and cerebrovascular disease if not treated. Risks of drowsy driving discussed in detail and patient advised to avoid long distance driving and to rod puller at the first sign of drowsiness. Patient agreed to plan. 2. Obesity, unspecified. Patient has gained weight. Currently patients BMI is 41.5. Obesity increases the risk of apnea, CPAP pressure requirements and overall health risks especially cardiovascular and diabetes. Thus patient is advised to lose weight. * Schedule polysomnography +- manual CPAP titration study and return in 1-2 weeks after the study to discuss result and initiate therapy. * Avoid long distance driving or driving when feeling sleepy. * Avoid alcohol, sedative and muscle relaxant around bedtime. * Attempt to lose weight. * Review instructions provided by trained office staff on how to prepare for the sleep study. * Return for follow-up after sleep study completed. Mask provided: Yes Counseling Topics: Spare mask, Weight loss health impact Visit Type: In Office Time Spent with Patient (minutes): 26 Provider Statement: I spent 100% of the Face to Face Visit with the patient with greater than 50% spent counseling the patient and coordination of care.
== END 2021-10-03 15:39 | disposition home or self-care (01) ==
LOC: SC 15:38
PROVIDERS: ATTEND Nurse Practitioner Family
DX: G47.33 Obstructive sleep apnea (adult) (pediatric) (principal); E66.01 Morbid (severe) obesity due to excess calories; Z68.41 Body mass index [BMI] 40.0-44.9, adult
CPT/HCPCS: 99212; 99213

== ENCOUNTER 2021-11-14 21:46 | Outpatient (CLI) | payer OTHER | END 2021-11-14 21:47 | disposition home or self-care (01) | LOC: SC 21:46 | PROVIDERS: ATTEND Nurse Practitioner Family | DX: G47.33 Obstructive sleep apnea (adult) (pediatric) (principal) | CPT/HCPCS: 95810 ==

== ENCOUNTER 2021-12-13 15:23 | Outpatient (CLI) | payer OTHER ==
[2021-12-13 15:54] VITALS: BP 126/74
--- NOTE | 2021-12-13 15:54 | SLEEP CARE CONSULTATION ---
Information from patient questionnaire entered by Db Mosher MA. I have reviewed and concur with the information entered by Db Mosher MA. This document represents the service I personally performed and the decisions made by , Nanette Funez ARNP. History of Present Illness Service Date and Time: 12/13/2021 1523 Initial [place] Sleepiness Scale score: 7 (09/2021) Current [place] Sleepiness Scale score: 4 (11/2021) Additional HPI information: HIEN CASTANEDA returns for follow up and results of the recently performed polysomnography. I explained the pathophysiology behind obstructive sleep apnea. We then spent quite a bit of time discussing different treatment options. For mild obstructive sleep apnea, surgery and oral appliance are alternatives to nasal CPAP therapy but in moderate or severe cases, nasal CPAP is the most effective and reliable treatment. Patient currently has an autoCPAP set at 5-10 cmH20. She had to be re-qualified for her CPAP due to sporadic use and weight changes. Patient does not drink alcohol. Patient was cautioned about risks of drowsy driving until sleepiness symptoms resolve. Sleep Study - Results Type of Sleep Study: Polysomnography ([facility], 11/14/21 [facility] Year and Where: [facility] 2019 Polysomnography/Home Sleep Study results: IMPRESSION: The quality of the study is good. The patient had slightly reduced sleep efficiency due to prolonged awakenings during the night. The sleep architecture was abnormal for sleep fragmentation and reduced amount of time spent in REM and slow wave sleep (N3). Respiratory monitoring showed moderate obstructive sleep apneahypopnea (AHI = 16.9) associated with frequent arousals, oxyhemoglobin desaturation and mild hypoxia (tima oxygen saturation of 83%). The respiratory events occurred more frequently during supine sleep (supine AHI = 35.6; non-supine = 15.78). Snore was moderate in intensity. There was no significant periodic leg movement of sleep. Cardiac rhythm was normal sinus rhythm without significant arrhythmia. No abnormal behavior (parasomnia) observed during the night. Allergies and Home Medications Known drug allergies: No Drug allergies reviewed: Yes Home medication list reviewed: Yes (no changes) Allergy and home medication list: Allergies No Known Drug Allergies Allergy (Verified 01/23/21 19:11) Review of Systems Review of systems same as previous: Yes (no changes) Physical Exam Vital signs obtained and entered by: LEWIS BENJAMIN Blood Pressure: 126/74 (RESP 16, PULSE 97, LEFT) Heart Rate: 96 O2 Saturation: 98 Height: 5 ft 5 in Impression and Plan 1. Obstructive Sleep Apnea-Hypopnea Syndrome, moderate, with lowest oxygen saturation of 83%. Obviously this is the cause of the patients symptoms of unrefreshed sleep, and excessive daytime sleepiness. Patient has re-qualified for her CPAP and she will restart nasal autoCPAP therapy with pressure set at 5- 15 cmH2O. I will order a new device since her other device was last updated in 2013. Compliance guidelines also reviewed. A copy of compliance guidelines will be given for reference at check out. She is to come in one month after obtaining new CPAP for compliance visit. She voiced understanding. 2. Hypoxemia, mild, with a tima oxygen saturation of 83% and 2.5 minutes spent under 89%. Her baseline oxygen saturation was normal with an oxygen saturation of 94%. * Nasal auto CPAP therapy, pressure at 5-15 cm H2O. * Attempt to lose weight. * Avoid alcohol consumption near bedtime. * Avoid supine sleep until using CPAP. * The patient is again cautioned about driving until sleepiness completely resolves. * Return one month after CPAP obtained. I will assess response to therapy and compliance at that time. Counseling Topics: Weight loss health impact Visit Type: In Office Time Spent with Patient (minutes): 22 Provider Statement: I spent 100% of the Face to Face Visit with the patient with greater than 50% spent counseling the patient and coordination of care.
== END 2021-12-13 15:24 | disposition home or self-care (01) ==
LOC: SC 15:23
PROVIDERS: ATTEND Nurse Practitioner Family
DX: G47.33 Obstructive sleep apnea (adult) (pediatric) (principal); R09.02 Hypoxemia
CPT/HCPCS: 99212; 99213

== ENCOUNTER 2022-04-25 16:01 | Outpatient (CLI) | payer OTHER ==
--- NOTE | 2022-04-25 16:49 | SLEEP CARE CONSULTATION ---
Information from patient questionnaire entered by Madeline Heath MA. I have reviewed and concur with the information entered by Madeline Heath MA. This document represents the service I personally performed and the decisions made by , Nanette Funez ARNP. History of Present Illness Service Date and Time: 04/25/2022 1601 Previous diagnosis: Mild, Obstructive Sleep Apnea-Hypopnea Syndrome AHI: 7.6 (2MO follow up) Accompanied by: Spouse Equipment type: CPAP Equipment obtained from: Other ([facility]; getting supplies) Mask style: Nasal pillows (Eric II) Backup mask available: Yes (other mask) Year and Where: [facility] 2018 Type of Sleep Study: Polysomnography ( [facility], 11/14/21 [facility],) HPI additional information: HIEN CASTANEDA was diagnosed to have mild, AHI 7.6, obstructive sleep apnea- hypopnea syndrome and returned today for CPAP therapy 2 month follow-up. Sleep Study - Results Type of Sleep Study: Polysomnography ( [facility], 11/14/21 [facility],) Year and Where: [facility] 2018 CPAP Compliance Data - Data Reviewed with Patient Average duration of nightly device use: 6.12 hours Compliance rate %: 80 (24/30 days used) Current pressure setting (cmH2O): 5-15 Average residual AHI: 2 Average large leak: 3% Subjective Patient concerns: denies: aerophagia, mask discomfort, air blowing in eyes, mask leak noise, condensation in mask/hose, nasal congestion, dry mouth, nose, throat, epistaxis Observed to snore while using device: No Current pressure setting perceived as: comfortable On therapy, patient: reports: sleeping better, awakening more refreshed, being more awake and alert during the day, more rested overall. 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 Obstructive Sleep Apnea-Hypopnea Syndrome, mild, with good treatment compli ance and good apnea control. On CPAP therapy, the patient has better sleep quality and is more rested overall. Patient would like to try a fullface mask. She is not sure but thinks that she is opening her mouth when she sleeps because she does occasionally get some dry mouth. I fitted her with a [employer] full face hybrid mask with a small cushion and medium headgear. Patient felt it was comfortable and will give this a try before she orders new supplies. Patient has significant improvement of their sleep apnea and are satisfied with current CPAP therapy. Patient denies problems with oral dryness, nasal congestion, epistaxis, skin irritation or aerophagia. Patient's apnea severity and rationale for treatment to reduce apnea, improve sleep quality and reduce cardiovascular and cerebrovascular events was reviewed. 2. Obesity, unspecified. Currently patients BMI is 42.2. Obesity increases the risk of apnea, CPAP pressure requirements and overall health risks especially cardiovascular and diabetes. Thus patient is advised to lose weight. * Continue auto CPAP pressure at 5-15 cmH2O * Notify me if snoring with mask or feeling that the pressure is too much or too little * Call this office if any problems using CPAP * Return for follow up in 3 months, or sooner if concerns arise Mask provided: Yes Counseling Topics: Spare mask, Weight loss health impact Visit Type: In Office Time Spent with Patient (minutes): 24 Provider Statement: I spent 100% of the Face to Face Visit with the patient with greater than 50% spent counseling the patient and coordination of care.
[2022-04-25 16:55] VITALS: BP 128/88
== END 2022-04-25 16:02 | disposition home or self-care (01) ==
LOC: SC 16:01
PROVIDERS: ATTEND Nurse Practitioner Family
DX: G47.33 Obstructive sleep apnea (adult) (pediatric) (principal); E66.01 Morbid (severe) obesity due to excess calories; Z68.41 Body mass index [BMI] 40.0-44.9, adult
CPT/HCPCS: 99212; 99213

== ENCOUNTER 2023-03-01 13:25 | Emergency (ER) | payer OTHER ==
--- OUTSIDE RECORDS SUMMARY | 2023-03-01 13:39 | EXTERNAL MEDICAL SUMMARY RPT | Continuity of Care Document ---
Author Name Unknown Address [address] [place] [address] Phone Organization [facility] Address [address] [place] [address] Phone Problems date description facility 2023-02-05 10:43 Iron deficiency anemia, unspeci [facility]
[2023-03-01] MEDS ORDERED: SODIUM CHLORIDE 0.9% 1,000 ML IV STA (14:03)
[2023-03-01 14:16] LABS: BASOPHILS # (AUTO) 0.1 10^3/uL (0.0-0.1); BASOPHILS % (AUTO) 0.5 %; EOSINOPHILS # (AUTO) 0.2 10^3/uL (0.0-0.7); EOSINOPHILS % (AUTO) 1.8 %; HGB - HEMOGLOBIN 11.7 g/dL (12.0-16.0); LYMPHOCYTES # (AUTO) 0.6 10^3/uL (1.5-3.5); LYMPHOCYTES % (AUTO) 5.6 %; MEAN CORPUSCULAR HEMOGLOBIN 29.7 pg (27.0-31.0); MEAN CORPUSCULAR HGB CONC 31.6 g/dL (32.0-36.0); MEAN CORPUSCULAR VOLUME 93.9 fL (81.0-99.0); MEAN PLATELET VOLUME 8.3 fL (7.9-10.8); MONOCYTES # (AUTO) 0.7 10^3/uL (0.0-1.0); NEUTROPHILS # (AUTO) 8.6 10^3/uL (1.5-6.6); NEUTROPHILS % (AUTO) 84.8 %; PLT - PLATELET COUNT 285 10^3/uL (130-450); RED BLOOD COUNT 3.94 10^6/uL (4.20-5.40); RED CELL DISTRIBUTION WIDTH 14.6 % (12.0-15.0); WHITE BLOOD COUNT 10.1 x10^3/uL (4.8-10.8)
[2023-03-01 14:28] LABS: ALBUMIN 3.5 g/dL (3.2-5.5); ALBUMIN/GLOBULIN RATIO 1.3 (1.0-2.2); CALCIUM 9.7 mg/dL (8.5-10.3); CREATININE 0.7 mg/dL (0.6-1.3); POTASSIUM 3.4 mmol/L (3.5-4.5); TOTAL PROTEIN 6.3 g/dL (6.4-8.9)
[2023-03-01] MEDS ORDERED: KETOROLAC 30 MG/ML VIAL IVP STA (14:39)
--- NOTE | 2023-03-01 14:39 | ED Physician Documentation ---
PD HPI ABD PAIN - Stated complaint Stated Complaint: RT SIDE/HEAD PX - Chief complaint Chief Complaint: Abd Pain - History obtained from History obtained from: Patient - Additional information Additional information: Patient is a 47-year-old female presenting for evaluation of right-sided abdominal pain that has been worsening over the past 2 days. Patient states that she has a known large stone in her right kidney and is scheduled for surgery with Dr. Juan Leger on March 03. She has chronic pain and is on Percocet 7.5325 every 6 hours. Due to the worsening pain 2 days ago she also received a prescription for oxycodone 5 mg. She has been taking these both at the same time every 6 hours. She states earlier today her pain was worsening and she could not get comfortable. She last took a dose of pain meds around 2 hours ago and states that right now she feels comfortable. She is also been taking ibuprofen, Valium and Flexeril. She is also been on Flomax. Patient was concerned that she has been drinking a lot of water but does not feel like she has been urinating very much. She was advised by her PCP to come to the emergency department for evaluation to see if she has an obstruction. Denies dysuria. Review of Systems Constitutional: denies: Fever Cardiac: denies: Chest pain / pressure Respiratory: denies: Dyspnea GI: reports: Abdominal Pain. 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, removed and grafted.) Derm: None - Past Surgical History Past Surgical History: Yes Ortho: Spine surgery /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 [employer]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: 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, Breast implants HEENT: Tonsil/Adenoidectomy - Present Medications Home Medications: Ambulatory Orders Medication Instructions Recorded Confirmed oxyCODONE/ACET 5/325 [Percocet 5 1 each PO ONCE 10/10/01/23/21 mg/325 mg] Dextroamphetamine/Amphetamine 20 mg PO DAILY 06/13/14 01/23/21 [Adderall 20 mg Tablet] Rizatriptan Benzoate [Maxalt] 5 mg PO ONCE PRN #6 tablet 07/28/16 01/23/21 DULoxetine [Cymbalta] 40 mg PO DAILY 04/08/19 01/23/21 Propranolol [Inderal] 40 mg PO DAILY 04/08/19 01/23/21 lamoTRIgine [LaMICtal] 100 mg PO DAILY 04/08/19 01/23/21 Amox/Clav 875/125 [Augmentin] 1 each PO Q12H #14 tablet 03/01/23 - Allergies Allergies/Adverse Reactions: Allergies Allergy/AdvReac Type Severity Reaction Status Date / Time No Known Drug Allergies Allergy Verified 03/01/23 13:27 - Social History Does the pt smoke?: Yes Smoking Status: Current every day smoker (uses chewing tobacco.) Does the pt drink ETOH?: No Does the pt have substance abuse?: No - Immunizations Immunizations are current?: Yes - POLST Patient has POLST: No PD ED PE NORMAL - General General: Alert and oriented X 3, No acute distress, Well developed/nourished - HEENT HEENT: Atraumatic - Neck Neck: Supple, no meningeal sign - Cardiac Cardiac: RRR, No murmur - Respiratory Respiratory: No respiratory distress, Clear bilaterally - Abdomen Abdomen: Normal bowel sounds, Soft, Non distended, Other (Mild tenderness to right upper quadrant) - Back Back: Other - Derm Derm: Warm and dry - Extremities Extremities: No edema Results - Vitals Vitals: Vital Signs - 24 hr 03/01/23 03/01/23 03/01/23 13:27 14:29 17:08 Temperature 36.5 C Heart Rate 90 96 69 Respiratory 16 20 15 Rate Blood Pressure 140/88 H 139/66 H 141/78 H O2 Saturation 96 96 98 Oxygen O2 Source Room air - Labs Labs: Laboratory Tests 03/01/23 03/01/23 03/01/23 14:11 14:11 14:50 WBC 10.1 RBC 3.94 L Hgb 11.7 L Hct 37.0 MCV 93.9 MCH 29.7 MCHC 31.6 L RDW 14.6 Plt Count 285 MPV 8.3 Neut # (Auto) 8.6 H Lymph # (Auto) 0.6 L [place] # (Auto) 0.7 Eos # (Auto) 0.2 Baso # (Auto) 0.1 Absolute Nucleated RBC 0.00 Nucleated RBC % 0.0 Sodium 138 Potassium 3.4 L Chloride 100 L Carbon Dioxide 34 H Anion Gap 4.0 L BUN 9 Creatinine 0.7 Estimated GFR (MDRD) 90 Glucose 133 H Calcium 9.7 Total Bilirubin 1.0 AST 49 H ALT 178 H Alkaline Phosphatase 283 H Total Protein 6.3 L Albumin 3.5 Globulin 2.8 Albumin/Globulin Ratio 1.3 Lipase 27 Urine Color YELLOW Urine Clarity HAZY Urine pH 6.0 Ur Specific [place] <=1.005 Urine Protein NEGATIVE Urine Glucose (UA) NEGATIVE Urine Ketones NEGATIVE Urine Occult Blood TRACE-INTA Urine Nitrite NEGATIVE Urine Bilirubin NEGATIVE Urine Urobilinogen 0.2 (NORMAL) Ur Leukocyte Esterase LARGE H Urine RBC 0-5 Urine WBC >25 H Ur Squamous Epith Cells FEW Squamous Urine Bacteria Moderate H Ur Microscopic Review INDICATED Urine Culture Comments INDICATED PD Medical Decision Making - ED course Complexity details: reviewed results, re-evaluated patient, d/w patient ED course: Patient is a 47-year-old female presenting for evaluation of right-sided abdom inal pain. She has a known stones in her renal pelvis and is scheduled for surgery with urology on Friday. On arrival she reports that her pain has improved. She is afebrile with stable vital signs. Labs including CBC, chemistries and urinalysis were obtained and reviewed. Patient has a normal white count and renal function is preserved. Patient does have elevation in her LFTs and alk phos. Patient is able to pull up prior labs on her phone. In November of this year her alk phos was 120 and LFTs were normal. Her urine analysis also is suggestive of an infection. Patient was on Macrobid but finished this on Friday and reports it was her second course of Macrobid. Initially was thought that we do not have ultrasound available so a CT scan was obtained to evaluate the gallbladder. I reviewed her CT images and she does have a proximal right ureter stone. Radiology was able to locate an industrial ecology technician and an ultrasound was also performed which does not show gallstones or signs of cholecystitis. Patient is only required IV Toradol here with adequate pain control. Her case has been reviewed with her urologist and planned for course of Augmentin. She is scheduled for surgery here on Friday. She is counseled on need for follow-up with her urologist as well as her PCP and is aware of her abnormal lab results. Patient is counseled on concerning symptoms to return for. 1649 - D/ Dr. Martinez (URology). Recommend starting the patient on Augmentin twice daily for 7 days. He will plan to still see her on Friday for her procedure. Departure - Departure Disposition: Home, Self Care Clinical Impression: Right ureteral stone, UTI (urinary tract infection), Abnormal liver enzymes Condition: Stable Instructions: ED UTI Cystitis Female, ED Stone Renal W Colic Follow-Up: LORIE DE LA GARZA DO [Primary Care Provider] - Arsen Martinez MD [Provider Admit Priv/Credential] - Prescriptions: Amox/Clav 875/125 [Augmentin] 1 each PO Q12H #14 tablet Comments: I have sent a prescription for an antibiotic to [facility] in [place]. Please make sure to take the antibiotic as directed. You have a 6 mm stone in your ureter. Please continue to take your pain medications as directed. Please keep your appointment with Dr. Martinez on Friday. Your labs today show that your liver markers are slightly elevated. We did check your liver and your gallbladder today with an ultrasound and per the preliminary read there is no findings to explain the abnormal results. Therefore I do recommend you have close follow-up with your primary care provider regarding your abnormal liver labs. Return to the emergency department with any new or worsening symptoms such as fever, increased pain. Forms: PCP List Discharge Date/Time: 03/01/23 17:09
[2023-03-01 15:02] LABS: BILIRUBIN,URINE NEGATIVE (NEGATIVE); GLUCOSE, URINE (UA) NEGATIVE (NEGATIVE); KETONES,URINE (UA) NEGATIVE (NEGATIVE); LEUKOCYTE ESTERASE, URINE LARGE (NEGATIVE); NITRITE,URINE NEGATIVE (NEGATIVE); OCCULT BLOOD,URINE TRACE-INTA (NEGATIVE); PROTEIN,URINE NEGATIVE (NEGATIVE); UROBILINOGEN,URINE 0.2 (NORMAL) E.U./dL (NORMAL)
[2023-03-01 15:03] LABS: CLARITY,URINE HAZY (CLEAR)
[2023-03-01 15:09] LABS: BACTERIA,URINE Moderate /HPF (None Seen); RBC,URINE 0-5 /HPF (0-5); SQUAMOUS EPITHELIAL CELL,UR FEW Squamous (<= Few); WBC,URINE >25 /HPF (0-5)
--- NOTE | 2023-03-01 15:15 | XRAY Report ---
PROCEDURE: Abdomen 1 View X-Ray INDICATIONS: RT SIDE ABD PAIN TECHNIQUE: 3 view of the abdomen acquired. COMPARISON: None. FINDINGS: Body habitus degrades evaluation. Surgical changes and devices: Posterior fixation of L4-L5 with intervertebral disc spacer.. Bowel: Bowel gas pattern is normal. Soft tissues: No suspicious abdominal calcifications. Visualized solid organ contours appear normal in size. Bones: No suspicious bony lesions. IMPRESSION: No suspicious calcifications identified however exam is degraded by patient habitus. Reviewed by: Júnior Hawkins MD on 03/01/2023 2:14 PM AKDT Approved by: Júnior Hawkins MD on 03/01/2023 2:14 PM AKDT Station ID: [id number]
[2023-03-01] MEDS ORDERED: iohexoL-300 100 ML VIAL IVP ONE (15:58)
--- NOTE | 2023-03-01 16:33 | CT Report ---
PROCEDURE: ABDOMEN/PELVIS W INDICATIONS: RUQ pain CONTRAST: 100ml omni 300 TECHNIQUE: After the administration of IV contrast, 5 mm thick sections acquired from the diaphragms to the symp hysis. 5 mm thick coronal and sagittal reformats were acquired. For radiation dose reduction, the f ollowing was used: automated exposure control, adjustment of mA and/or kV according to patient size. COMPARISON: CT stone February 18, 2023 FINDINGS: Image quality: Excellent. Lung bases and heart: Unremarkable. Liver: No solid mass. Gallbladder and biliary tree: No radiopaque stones or wall thickening. No biliary dilation. Spleen: No splenomegaly. Pancreas: No pancreatic ductal dilation. Adrenals: No adrenal nodule. Kidneys and ureters: Right perinephric fat stranding with proximal hydronephrosis and a proximal uret eral stone measuring 6 mm. Mean density measures 998 HU. Bowel and peritoneum: No bowel distension. No pathologic free fluid. Lymph nodes: No central or retroperitoneal adenopathy. Vessels: No infrarenal aortic aneurysm. PELVIS Reproductive organs: Unremarkable. Bladder: No abnormal wall thickening, accounting for underdistension. Pelvic lymph nodes: No pelvic adenopathy by size criteria. Bones: No aggressive osseous abnormality. Other: No significant ventral or inguinal hernia. IMPRESSION: Partially obstructive right ureteral stone measuring 6 mm. Reviewed by: Júnior Hawkins MD on 03/01/2023 3:32 PM AKDT Approved by: Júnior Hawkins MD on 03/01/2023 3:32 PM AKDT Station ID: [id number]
[2023-03-01] MEDS ORDERED: AMOX/CLAV 875 MG/125 MG TABLET PO STA (16:53)
[2023-03-01 17:12] VITALS: BP 141/78; O2SAT 98
--- NOTE | 2023-03-01 17:25 | Ultrasound Report ---
PROCEDURE: Abdomen Limited INDICATIONS: RUQ TECHNIQUE: Real-time focused scanning was performed of the abdomen, with image documentation. COMPARISONS: CT February 18, 2023 FINDINGS: Liver: Increased liver echogenicity, commonly mild hepatic steatosis. Gallbladder: Unremarkable. Biliary ducts: Intrahepatic bile ducts are non-dilated. Extrahepatic bile duct caliber measures 3.6 mm. Normal is 6-7 mm or less in diameter, or 10 mm or less post-cholecystectomy. Pancreas: Visualized portions of the pancreas are sonographically normal. Right kidney: Normal in size and echotexture. Right kidney measures 11.2 cm long. Echogenic foci wit h posterior acoustic shadowing measuring up to 1.2 cm. Right pelviectasis. Questionable proximal ure teral stone measuring 1.6 cm. No solid masses. No complex renal cystic lesions which require follow-u p. Aorta: Visualized aorta is normal in caliber at less than 3 cm. IVC: Intrahepatic inferior vena cava is patent. Miscellaneous: No free abdominal fluid. IMPRESSION: Partially obstructing proximal ureteral stone measuring 1.6 cm with additional right kidney stone rena suring 1.2 cm. Hepatic steatosis. Reviewed by: Júnior Hawkins MD on 03/01/2023 4:23 PM NAI Approved by: Júnior Hawkins MD on 03/01/2023 4:23 PM AKJEN Station ID: [id number]
== END 2023-03-01 17:09 | disposition home or self-care (01) ==
LOC: ED 13:25
DX: N39.0 Urinary tract infection, site not specified (principal); N20.1 Calculus of ureter; F17.220 Nicotine dependence, chewing tobacco, uncomplicated
CPT/HCPCS: 36415; 74018; 74177; 76705; 80053; 81001; 83690; 85025; 87086; 87181; 96374; 99284; A9270; Q9967; 81003

== ENCOUNTER 2023-06-25 18:42 | Outpatient (CLI) | payer OTHER ==
--- NOTE | 2023-06-26 15:51 | Ultrasound Report ---
PROCEDURE: Retroperitoneal INDICATIONS: NEPHROLITHIASIS TECHNIQUE: Real-time scanning was performed of the retroperitoneal organs, with image documentation. COMPARISON: CT abdomen and pelvis on March 01, 2023. FINDINGS: Kidneys: Kidneys are normal in size. Right kidney measures 9.8 cm long; left kidney measures 10.3 c m long. Right renal cortical thickness is 2.3 cm; left renal cortical thickness is 1.8 cm. Echogeni c focus in the right interpolar region measuring 5 mm. No solid masses or hydronephrosis bilaterally. The left-sided nephrolithiasis. Bladder: Pre-void bladder volume is 456 mL. Post-void residual is 3 mL. Pre-void images demonstrat e no intraluminal masses or stones. On pre-void images, bilateral ureteral jets are noted with color Doppler interrogation. (Of note, ureteral jets may not be detectable in up to 25% of cases due to i nsufficient differences in specific gravity between ureteral and bladder urine). Miscellaneous: No free abdominal fluid. IMPRESSION: 1.Nonobstructive nephrolith in the right interpolar region measuring 5 mm. 2.No hydronephrosis bilaterally. No left-sided nephrolithiasis. Reviewed by: Daniel Petit MD on 06/26/2023 3:49 PM PST Approved by: Daniel Petit MD on 06/26/2023 3:49 PM PST Station ID: [id number]
== END 2023-06-25 18:43 | disposition home or self-care (01) ==
LOC: DI 18:42
PROVIDERS: ATTEND Urology
DX: N20.0 Calculus of kidney (principal)

== ENCOUNTER 2023-07-02 08:00 | Outpatient (CLI) | payer OTHER | END 2023-07-02 23:59 | disposition home or self-care (01) | LOC: LAB.R 08:00 | PROVIDERS: ATTEND Urology | DX: N20.0 Calculus of kidney (principal) | CPT/HCPCS: 87077; 87086; 87181 ==

== ENCOUNTER 2023-09-11 17:30 | Outpatient (CLI) | payer OTHER ==
--- NOTE | 2023-09-13 11:47 | MRI Report ---
PROCEDURE: Shoulder LT WO INDICATIONS: LEFT SHOULDER PAIN TECHNIQUE: Noncontrast oblique coronal T2 fast spin echo with fat saturation, oblique sagittal T1 spin echo and T2 fast spin echo with fat saturation, axial T1 spin echo and T2 fast spin echo with fat saturation t hrough the shoulder. COMPARISON: None. FINDINGS: Image quality: Excellent. Rotator cuff: There is low-grade partial-thickness tear of the supraspinatus tendon moving both artic ular and bursal surfaces from the musculotendinous shunt into the footprint. There is mild infraspina tus and subscapularis tendinosis. No rotator cuff muscle atrophy. Bones and bursae: No bone marrow contusions or fractures. Mild acromioclavicular joint degeneration. The acromion demonstrates conventional anatomy, without an os acromiale. There is a small amount of subcoracoid bursal fluid suggesting mild bursitis. Capsule and soft tissues: In the absence of intra-articular contrast, the labrum and glenohumeral li gaments appear intact. The long head of the biceps tendon demonstrates normal location and morpholog y. The rotator interval appears normal, without fibrosis. The coracohumeral ligament is normal in t hickness. IMPRESSION: 1. Low grade partial-thickness tear of the supraspinatus tendon. 2. Mild infraspinous and subscapularis tendinosis. 3. Mild subcoracoid bursitis. 4. Mild acromioclavicular arthrosis. Reviewed by: Judie James MD on 09/13/2023 11:45 AM PST Approved by: Judie James MD on 09/13/2023 11:45 AM PST Station ID: [id number]
== END 2023-09-11 17:31 | disposition home or self-care (01) ==
LOC: DI 17:30
PROVIDERS: ATTEND Family Medicine
DX: M75.112 Incomplete rotator cuff tear or rupture of left shoulder, not specified as traumatic (principal); M67.814 Other specified disorders of tendon, left shoulder; M75.52 Bursitis of left shoulder; M19.012 Primary osteoarthritis, left shoulder

== ENCOUNTER 2023-11-29 12:20 | Emergency (ER) | payer OTHER ==
[2023-11-29 12:45] VITALS: BP 153/111; O2SAT 97
[2023-11-29 13:26] LABS: BASOPHILS # (AUTO) 0.1 10^3/uL (0.0-0.1); BASOPHILS % (AUTO) 0.6 %; EOSINOPHILS # (AUTO) 0.2 10^3/uL (0.0-0.7); EOSINOPHILS % (AUTO) 1.4 %; HCT - HEMATOCRIT 43.2 % (37.0-47.0); HGB - HEMOGLOBIN 14.6 g/dL (12.0-16.0); LYMPHOCYTES # (AUTO) 2.2 10^3/uL (1.5-3.5); LYMPHOCYTES % (AUTO) 19.8 %; MEAN CORPUSCULAR HEMOGLOBIN 31.3 pg (27.0-31.0); MEAN CORPUSCULAR HGB CONC 33.8 g/dL (32.0-36.0); MEAN CORPUSCULAR VOLUME 92.7 fL (81.0-99.0); MEAN PLATELET VOLUME 8.9 fL (7.9-10.8); MONOCYTES # (AUTO) 0.7 10^3/uL (0.0-1.0); MONOCYTES % (AUTO) 6.1 %; NEUTROPHILS # (AUTO) 7.9 10^3/uL (1.5-6.6); NEUTROPHILS % (AUTO) 71.6 %; PLT - PLATELET COUNT 359 10^3/uL (130-450); RED BLOOD COUNT 4.66 10^6/uL (4.20-5.40); RED CELL DISTRIBUTION WIDTH 12.8 % (12.0-15.0); WHITE BLOOD COUNT 11.1 x10^3/uL (4.8-10.8)
[2023-11-29 13:33] LABS: ALBUMIN 4.4 g/dL (3.2-5.5); ALBUMIN/GLOBULIN RATIO 1.6 (1.0-2.2); BILIRUBIN,TOTAL 0.7 mg/dL (0.2-1.0); CALCIUM 9.6 mg/dL (8.5-10.3); CREATININE 0.8 mg/dL (0.6-1.3); POTASSIUM 4.1 mmol/L (3.5-4.5); TOTAL PROTEIN 7.1 g/dL (6.4-8.9)
== END 2023-11-29 14:30 | disposition left against medical advice (07) ==
LOC: ED 12:20
DX: Z53.21 Procedure and treatment not carried out due to patient leaving prior to being seen by health care provider (principal)
CPT/HCPCS: 36415; 80053; 83690; 85025